=== PATIENT | female | born 1995 | race American Indian/Alaskan Native ===

== ENCOUNTER 2016-10-17 20:33 | Emergency (ER) | payer OTHER ==
[2016-10-17] MEDS ORDERED: Alum Hydroxide/Mag Hydroxide 15 ML, Lidocaine 2% 15 ML PO ONE ×2 (21:58)
--- NOTE | 2016-10-19 01:21 | ER ---
DATE SEEN: 10/17/2016 ADDENDUM: The patient also was given a GI cocktail, which has Maalox, calcium carbonate plus lidocaine and she felt slightly better. /[id number] RHETT/GUS
--- NOTE | 2016-10-19 11:07 | ER ---
DATE SEEN: 10/17/2016 TIME SEEN: The patient was seen at 2005 hours. CHIEF COMPLAINT: Cough and emesis with trace blood in it. This 20-year-old nullipara has one week of cough without fever. She has tried to quit smoking and stopped 1 month ago, but has started and only smokes few cigarettes a day presently. She has had few episodes of vomiting at 0730 hours this evening. With further inquiry, it is apparent that when she coughs she did vomit with the cough. She has mild left anterior axillary line discomfort of the ribs 10, 11, and 12 right side. The patient denies shortness of breath, chest pain, otherwise abdominal discomfort, nausea, vomiting, diarrhea, except for the episodes this evening. She has been coughing for a week. Last menstrual period 10/12/2016. PHYSICAL EXAM: GENERAL: Alert woman, lying on her side and easily aroused, sits up without difficulty. VITAL SIGNS: Blood pressure 118/65, heart rate 66, respirations 18, oxygen saturation 100%, and temperature is 36.7 degrees centigrade. GENERAL: Alert woman, well-muscled, and well-nourished, in mild distress. HEENT: PERRLA intact. Pharynx without abnormality. No blood in posterior pharynx. Gag is appropriate. Tongue is normal appearance. Teeth normal appearance. NECK: Supple. No thyromegaly or masses. No cervical adenopathy. LUNGS: Clear to auscultation without rales, rhonchi, or wheezes. HEART: S1, S2. No murmur. Mild anterior axillary line discomfort and subchondral discomfort at ribs 10 and 11 and this does trace back to the mid axillary line. No focal step-off. No crepitus noted. No rales in the lungs. No wheezes, no rhonchi. ABDOMEN: Soft. No hepatosplenomegaly. No guarding in upper and lower quadrants. No CVA percussion tenderness. EXTREMITIES: Without edema. Deep tendon reflexes normal in upper and lower extremities. NEURO: Cranial nerves 2 through 12 intact. Oriented x3. ASSESSMENT: Right mild costo-subchondritis. No evidence for disruption of the ribs. No need for chest x-ray presently. The patient reassured. The patient's last menstrual period was a week ago, as stated above, 10/12/2016. She is not using any form of contraception and she is sexually active. She potentially could get in this period of time, between now and the next menstrual cycle. Consequently, PPI was not used. The antihistamine H2 blockers used Tagamet 300 mg twice a day for 20 days. The cause for cough was indeterminate. It is possible she could have GERD or reflux. It is not evident on the basis of history. DIAGNOSES: 1. Gastroesophageal reflux disease. 2. Hematemesis - string of blood noted. 3. Possible Rachana-Ansari; if present, they are minor symptoms. 4. Cough, etiology indeterminate, possibly secondary to GERD also. /[id number] RHETT/GUS
== END 2016-10-17 22:10 | disposition home or self-care (01) ==
LOC: FB.ED 20:33
DX: M94.0 Chondrocostal junction syndrome [Tietze] (principal); F17.210 Nicotine dependence, cigarettes, uncomplicated
CPT/HCPCS: 99283; A9270